=== PATIENT | female | born 1945 | race Caucasian/White ===

== ENCOUNTER → 2016-10-14 | Outpatient (CLI) | payer MEDICARE, OTHER ==
--- NOTE | 2016-10-15 08:13 | BD ---
EXAMINATION TYPE: MG DEXA axial skeleton. DATE OF EXAM: 10/14/2016 1:15 PM COMPARISON: 12.13.2001 DEXA bone scan report. CLINICAL HISTORY: z70.0 post menopausal without hrt Height: 62.5 Weight: 140 FRAX RISK QUESTIONS: Alcohol (3 or more units per day): NO Family History (Parent hip fracture): YES Glucocorticoids (More than 3mos): YES (Ex: prednisone, prednisolone, methylprednisolone, dexamethasone, and hydrocortisone). History of Fracture in Adulthood: NO Secondary Osteoporosis: NO 1. Type 1 Diabetes: YES 2. Hyperthyroidism: NO 3. Menopause before 45: NO 4. Malnutrition: NO 5. Chronic liver disease: NO Rheumatoid Arthritis: NO Current Tobacco Use: NO RISK FACTORS HISTORY OF: Family History of Osteoporosis: YES, HER SISTER, WITH BROKEN HIPS AND BACK Drink Alcohol: RARE Active: LOW TO MODERATE ACTIVITY Diet low in dairy products/other sources of calcium: YES, LACTOSE INTOLERANT Postmenopausal woman: TOTAL HYST AT AGE 48 Take estrogen and/or progesterone medications: TOOK HRT FOR SEVERAL YRS ...BUT NOT NOW Lost more than 2 inches in height since high school: NOT QUITE Adrenal Insufficiency: NO MEDICATIONS: Prednisone or other steroids: ASTHMA INHALERS, SEASONAL, AND STEROIDAL INJECTIONS, DOSE PACS FOR LUNG S How Long: ON AND OFF FOR YRS Thyroid Medications: YES Which medication: SYNTHROID How Lon+ YRS Additional Medications: VIT D3, BP MEDS, LAMOTRIGINE,CLONAZEPAM,MIRTAZAPINE, DIABETIC MEDS, STATIN FO R CHOLESTEROL, Additional History: ASTHMA, SEASONAL ALLERGIES, ARTHRITIS, DIABETES, DEPRESSION/ANXIETY, HYPERTENSION EXAM MEASUREMENTS: Bone mineral densitometry was performed using the [employer] System. Bone mineral density as measured about the Lumbar spine is: ----- L1-L4(G/cm2): 1.023 T Score Values are as follows: ----- L1: -1.4 ----- L2: -2.1 ----- L3: -0.7 ----- L4: -1.3 ----- L1-L4: -1.3 Bone mineral density has: Decreased -6.6% since study of: 12.13.2001 Bone mineral density about the R hip (g/cm2): 0.872 Bone mineral density about the L hip (g/cm2): 0.913 T Score values are as follows: -----R Neck: -1.2 -----L Neck: -0.9 -----R Intertrochanter: -1.8 -----L Intertrochanter: -0.8 Bone mineral density has: Decreased -11.8% since study of: 12.13.2001 FRAX %'S: FOR MAJOR OSTEOPOROTIC FX: 15.3%.....FOR HIP FX: 4.6% PROBABILITY OF FX IN 10 Y RS TIME IMPRESSION: Osteopenia (T Score between -2.5 and -1 as noted by T score values in the low back and right hip is p resent. There is slightly increased risk of fracture and the patient may be considered for treatment. Re-Screen 1-2 years. NOTE: T-SCORE=SD OF THE YOUNG ADULT MEAN.
== END | disposition home or self-care (01) ==
LOC: RADBDWWP 12:35
PROVIDERS: ATTEND Family Medicine
DX: M85.80 Other specified disorders of bone density and structure, unspecified site (principal); Z78.0 Asymptomatic menopausal state
CPT/HCPCS: 77080

== ENCOUNTER → 2016-10-28 | Outpatient (CLI) | payer MEDICARE, OTHER ==
[2016-10-28 10:07] LABS: CH 29.2; CHCM 33.9; HCT 41.9 % (34.0-46.0); HDW 2.52; HGB 13.8 gm/dL (11.4-16.0); MCH 28.4 pg (25.0-35.0); MCHC 32.9 g/dL (31.0-37.0); MCV 86.4 fL (80.0-100.0); Mean Platelet Volume 7.2; RBC 4.84 m/uL (3.80-5.40); WBC 6.8 k/uL (3.8-10.6)
[2016-10-28 10:36] LABS: ALT 34 U/L (9-52); AST 24 U/L (14-36); Alkaline Phosphatase 77 U/L (38-126); Anion Gap 13 mmol/L; Blood Urea Nitrogen 12 mg/dL (7-17); Calcium 8.6 mg/dL (8.4-10.2); Carbon Dioxide 25 mmol/L (22-30); Chloride 100 mmol/L (98-107); Cholesterol 162 mg/dL (<200); Glucose 183 mg/dL (74-99); HDL Cholesterol 44 mg/dL (40-60); Non-African American GFR(MDRD) >60 (>60 ml/min/1.73 sqM); Potassium 4.1 mmol/L (3.5-5.1); Sodium 138 mmol/L (137-145); Total Bilirubin 0.6 mg/dL (0.2-1.3); Total Protein 7.5 g/dL (6.3-8.2); Triglycerides 206 mg/dL (<150)
[2016-10-28 11:42] LABS: Hemoglobin A1C 7.5 % (4.2-6.1)
== END | disposition home or self-care (01) ==
LOC: LABWHC1 09:34
PROVIDERS: ATTEND Family Medicine
DX: Z00.00 Encounter for general adult medical examination without abnormal findings (principal); E03.9 Hypothyroidism, unspecified; E55.9 Vitamin D deficiency, unspecified; E11.9 Type 2 diabetes mellitus without complications; E78.5 Hyperlipidemia, unspecified
CPT/HCPCS: 36415; 80053; 80061; 82043; 82272; 82306; 83036; 84439; 84443; 85027

== ENCOUNTER 2017-01-31 20:23 | Emergency (ER) | payer MEDICARE, OTHER ==
[2017-01-31 20:30] VITALS: BP 151/69; PULSE 72; RESP 20; TEMP 98.3
[2017-01-31] MEDS ORDERED: DIPH,PERTUS(ACELL)TETVAC-LF 0.5 ML VIAL IM ONE (20:43)
--- NOTE | 2017-01-31 20:51 | ED ---
Wound/Laceration HPI - General Chief Complaint: Wound/Laceration Stated Complaint: Left index finger Lac Time Seen by Provider: 01/31/17 20:31 Source: patient, RN notes reviewed Mode of arrival: ambulatory Limitations: no limitations - History of Present Illness Initial Comments: Patient is 71-year-old female presents to the emergency for evaluation of left pointer finger laceration. Patient states she was cutting liver for her son's dog with a serrated knife and accidentally sliced the top of her left pointer finger. Patient states it began to bleed and thought she should be evaluated. Patient denies taking blood thinners. Patient states she is not up-to-date on her tetanus vaccine. Patient states that she is having 1 out of 10 pain. Patient denies any other injuries during incident. - Related Data Home Medications Medication Instructions Recorded Confirmed Acyclovir [Zovirax] 5 gm TOPICAL DAILY PRN 03/04/15 06/23/15 Ascorbic Acid [Vitamin C] 1 tab PO DAILY 03/04/15 06/23/15 Aspirin [Aspirin] 1 tab PO DAILY 03/04/15 06/23/15 Atorvastatin [Lipitor] 20 mg PO DIRECTED 03/04/15 06/23/15 Cholecalciferol [Vitamin D3] 2,000 mg PO DAILY 03/04/15 06/23/15 Exenatide [Byetta] 10 mcg INJ BID 03/04/15 06/23/15 Fexofenadine HCl [Emily Allergy] 1 tab PO DAILY PRN 03/04/15 06/23/15 Levothyroxine Sodium [Synthroid] 100 mcg PO DAILY 03/04/15 06/23/15 Mirtazapine [Remeron] 45 mg PO DAILY 03/04/15 06/23/15 Multivitamin [Men's Multi-Vitamin] 1 tab PO DAILY 03/04/15 06/23/15 Omeprazole [PriLOSEC] 40 mg PO DAILY 03/04/15 06/23/15 clonazePAM [KlonoPIN] 1 mg PO HS 03/04/15 06/23/15 lamoTRIgine [LaMICtal] 25 mg PO HS 03/04/15 06/23/15 metFORMIN HCL [Glucophage] 1,000 mg PO BID 03/04/15 06/23/15 Cycloset 0.8 mg PO DAILY 06/23/15 06/23/15 Losartan-Hctz 50-12.5 mg [Hyzaar 1 tab PO DAILY 06/23/15 06/23/15 50-12.5] Timolol [Betimol 0.5% Ophth Soln] 1 drop BOTH EYES DAILY 06/23/15 06/23/15 Travoprost [Travatan Z 0.004%] 1 drop BOTH EYES DAILY 06/23/15 06/23/15 Allergies Allergy/AdvReac Type Severity Reaction Status Date / Time diphenhydramine HCl Allergy Rash/Hives Verified 01/31/17 20:29 [From Benadryl] insulin detemir Allergy Rash/Hives Verified 01/31/17 20:29 [From Levemir] Iodinated Contrast Media - Allergy Rash/Hives Verified 01/31/17 20:29 Oral and neomycin Allergy Rash/Hives Verified 01/31/17 20:29 nickel Allergy Rash/Hives Verified 01/31/17 20:29 Penicillins Allergy Rash/Hives Verified 01/31/17 20:29 Review of Systems ROS Statement: Those systems with pertinent positive or pertinent negative responses have been documented in the HPI. ROS Other: All systems not noted in ROS Statement are negative. Past Medical History Past Medical History: Diabetes Mellitus, Hyperlipidemia, Hypertension, Thyroid Disorder Additional Past Medical History / Comment(s): jessica rivera virus, History of Any Multi-Drug Resistant Organisms: None Reported Past Surgical History: Appendectomy, Cholecystectomy, Hysterectomy, Tonsillectomy Additional Past Surgical History / Comment(s): THROIDECTOMY, ARTHROSCOPY LEFT KNEE, CATaRACT Past Psychological History: Anxiety, Depression Smoking Status: Never smoker Past Alcohol Use History: None Reported Past Drug Use History: None Reported General Exam - General Exam Comments Initial Comments: Sitting in exam room, no acute distress. Limitations: no limitations General appearance: alert, in no apparent distress Head exam: Present: atraumatic, normal inspection Eye exam: Present: normal appearance ENT exam: Present: normal exam Neck exam: Present: normal inspection Respiratory exam: Absent: respiratory distress Extremities exam: Present: normal inspection Left Hand Wrist exam: Present: laceration (0.5 cm flap laceration/avulsion on the distal phalanx of the pointer finger.) Vascular: Present: normal capillary refill (Capillary refill less than 2 seconds ), radial pulse (2+), ulnar pulse (2+) Back exam: Present: normal inspection Neurological exam: Present: alert, oriented X3, CN II-XII intact, normal gait Psychiatric exam: Present: normal affect, normal mood Skin exam: Present: warm, dry. Absent: rash Course Vital Signs 01/31/17 20:27 Temperature 98.3 F Pulse Rate 72 Respiratory 20 Rate Blood Pressure 151/69 O2 Sat by Pulse 98 Oximetry Procedures - Laceration Laceration #1 Consent Obtained: verbal consent Indication: laceration Site: other (left second finger ) Size (cm): 1 Description: flap Depth: simple, single layer Type of Sutures: other (dermabond) Size of Sutures: other Patient Tolerated Procedure: well, no complications Medical Decision Making - Medical Decision Making Patient is a 71-year-old female presents to the emergency room for evaluation of left pointer finger laceration. Patient up-to-date on her tetanus vaccine. Laceration repaired with Dermabond. Return parameters discussed. Disposition Clinical Impression: Finger laceration Disposition: HOME SELF-CARE Condition: Good Instructions: Finger Laceration (ED), Skin Adhesive Care (ED) Additional Instructions: Tylenol or Motrin as needed for discomfort. Dermabond will fall off on its own in 5-10 days. Do not soak hands in water. Please follow up with primary care provider in 1-2 days. If any new symptom arises or symptoms worsen, return to ER as soon as possible. Referrals: Terri Lauren MD [Primary Care Provider] - 1-2 days Time of Disposition: 21:13
[2017-01-31] MEDS ORDERED: TOPICAL SKIN ADHESIVE 1 EACH AMP TOPICAL ONE (21:00)
[2017-01-31] MEDS ORDERED: LIDOCAINE/EPINEPHR/TETRACAINE 5 ML BOTTLE TOPICAL ONE (21:00)
== END 2017-01-31 21:20 | disposition home or self-care (01) ==
LOC: EC 20:23
DX: S61.211A Laceration without foreign body of left index finger without damage to nail, initial encounter (principal); E11.9 Type 2 diabetes mellitus without complications; E78.5 Hyperlipidemia, unspecified; I10 Essential (primary) hypertension; E07.9 Disorder of thyroid, unspecified; F32.9 Major depressive disorder, single episode, unspecified; F41.9 Anxiety disorder, unspecified; Z23 Encounter for immunization; Z79.899 Other long term (current) drug therapy; Z79.84 Long term (current) use of oral hypoglycemic drugs; Z88.8 Allergy status to other drugs, medicaments and biological substances; Z91.041 Radiographic dye allergy status; Z88.0 Allergy status to penicillin; Z88.1 Allergy status to other antibiotic agents; W26.0XXA Contact with knife, initial encounter; Y93.89 Activity, other specified
CPT/HCPCS: 12001; 90471; 90715; 99282

== ENCOUNTER → 2017-07-14 | Outpatient (CLI) | payer MEDICARE, OTHER ==
--- NOTE | 2017-07-14 09:35 | US ---
EXAMINATION TYPE: US carotid duplex BILAT DATE OF EXAM: 07/14/2017 COMPARISON: NONE CLINICAL HISTORY: R42 Dizziness. Tired. No HTN. EXAM MEASUREMENTS: RIGHT: Peak Systolic Velocity (PSV) cm/sec ----- Right CCA: 119.0 ----- Right ICA: 129.2 ----- Right ECA: 88.0 ICA/CCA ratio: 1.1 RIGHT: End Diastole cm/sec ----- Right CCA: 36.5 ----- Right ICA: 41.9 ----- Right ECA: 11.5 LEFT: Peak Systolic Velocity (PSV) cm/sec ----- Left CCA: 99.2 ----- Left ICA: 102.0 ----- Left ECA: 87.7 ICA/CCA ratio: 1.0 LEFT: End Diastole cm/sec ----- Left CCA: 24.1 ----- Left ICA: 32.6 ----- Left ECA: 7.3 VERTEBRALS (direction of flow): Right Vertebral: Antegrade Left Vertebral: Antegrade Rhythm: Normal No significant stenosis or wall thickening. Plaque seen in bilateral bulbs. IMPRESSION: 1. Elevated peak systolic velocity of the right internal carotid artery corresponding to stenosis of approximately 50%. 2. Minimal crowder scale plaquing within the carotid bulbs. 3. No evidence of hemodynamically significant stenosis within the left carotid system.
== END | disposition home or self-care (01) ==
LOC: RADUSWWP 06:59
PROVIDERS: ATTEND Family Medicine
DX: I65.21 Occlusion and stenosis of right carotid artery (principal)
CPT/HCPCS: 93880

== ENCOUNTER → 2017-11-16 | Outpatient (CLI) | payer MEDICARE, OTHER ==
[2017-11-16 15:20] LABS: Potassium 4.5 mmol/L (3.5-5.1)
[2017-11-16 22:16] LABS: Hemoglobin A1C 7.4 % (4.0-6.0)
== END | disposition home or self-care (01) ==
LOC: LABWHC1 14:17
PROVIDERS: ATTEND Family Medicine
DX: E11.9 Type 2 diabetes mellitus without complications (principal)
CPT/HCPCS: 36415; 80048; 82043; 82570; 83036

== ENCOUNTER → 2018-03-11 | Outpatient (CLI) | payer MEDICARE, OTHER ==
[2018-03-11 09:47] LABS: Basophils % (A) 0 %; Eosinophils # (A) 0.2 k/uL (0-0.7); Eosinophils % (A) 4 %; HCT 38.4 % (34.0-46.0); Lymphocytes % (A) 30 %; MCH 29.4 pg (25.0-35.0); MCHC 33.8 g/dL (31.0-37.0); MCV 87.1 fL (80.0-100.0); Mean Platelet Volume 7.2; Monocytes # (A) 0.5 k/uL (0-1.0); Monocytes % (A) 8 %; Neutrophils # (A) 3.7 k/uL (1.3-7.7); Neutrophils % (A) 56 %; Platelet Count 252 k/uL (150-450); RBC 4.41 m/uL (3.80-5.40); RDW 13.1 % (11.5-15.5); WBC 6.7 k/uL (3.8-10.6)
[2018-03-11 10:05] LABS: ALT 29 U/L (9-52); AST 21 U/L (14-36); Albumin 3.9 g/dL (3.5-5.0); Alkaline Phosphatase 74 U/L (38-126); Anion Gap 10 mmol/L; Blood Urea Nitrogen 13 mg/dL (7-17); Calcium 8.4 mg/dL (8.4-10.2); Carbon Dioxide 30 mmol/L (22-30); Chloride 98 mmol/L (98-107); Cholesterol 143 mg/dL (<200); Glucose 148 mg/dL (74-99); HDL Cholesterol 44 mg/dL (40-60); LDL Cholesterol,Calculated 67 mg/dL (0-99); Potassium 4.5 mmol/L (3.5-5.1); Sodium 138 mmol/L (137-145); Total Bilirubin 0.3 mg/dL (0.2-1.3); Total Protein 6.6 g/dL (6.3-8.2); Triglycerides 159 mg/dL (<150)
[2018-03-11 10:16] LABS: T4, Free (Free Thyroxine) 1.56 ng/dL (0.78-2.19)
[2018-03-11 18:34] LABS: Hemoglobin A1C 7.5 % (4.0-6.0)
== END | disposition home or self-care (01) ==
LOC: LABWHC1 08:56
PROVIDERS: ATTEND Family Medicine
DX: E78.5 Hyperlipidemia, unspecified (principal); E11.9 Type 2 diabetes mellitus without complications; I10 Essential (primary) hypertension; E03.9 Hypothyroidism, unspecified; E55.9 Vitamin D deficiency, unspecified
CPT/HCPCS: 36415; 80053; 80061; 82306; 83036; 84439; 84443; 85025

== ENCOUNTER → 2018-05-26 | Outpatient (CLI) | payer MEDICARE, OTHER ==
[2018-05-26 19:07] LABS: Hemoglobin A1C 7.8 % (4.0-6.0)
== END | disposition home or self-care (01) ==
LOC: LABWHC1 10:43
PROVIDERS: ATTEND Internal Medicine
DX: E11.65 Type 2 diabetes mellitus with hyperglycemia (principal)
CPT/HCPCS: 36415; 82043; 82570; 83036

== ENCOUNTER → 2018-09-08 | Outpatient (CLI) | payer MEDICARE, OTHER ==
[2018-09-08 09:28] LABS: Basophils # (A) 0.1 k/uL (0-0.2); Basophils % (A) 1 %; Eosinophils # (A) 0.2 k/uL (0-0.7); Eosinophils % (A) 3 %; HCT 42.7 % (34.0-46.0); HGB 13.4 gm/dL (11.4-16.0); Lymphocytes # (A) 2.1 k/uL (1.0-4.8); Lymphocytes % (A) 29 %; MCH 27.7 pg (25.0-35.0); MCHC 31.5 g/dL (31.0-37.0); Mean Platelet Volume 6.9; Monocytes # (A) 0.5 k/uL (0-1.0); Monocytes % (A) 7 %; Neutrophils # (A) 4.1 k/uL (1.3-7.7); Neutrophils % (A) 57 %; Platelet Count 242 k/uL (150-450); RBC 4.85 m/uL (3.80-5.40); RDW 13.7 % (11.5-15.5); WBC 7.2 k/uL (3.8-10.6)
[2018-09-08 17:50] LABS: T4, Free (Free Thyroxine) 1.5 ng/dL (0.80-1.80)
[2018-09-08 18:30] LABS: Albumin 4.2 g/dL (3.80-4.90); Albumin/Globulin Ratio 2.1 (1.20-2.10); Anion Gap 11.4 mmol/L (4.00-12.00); Calcium 7.8 mg/dL (8.7-10.3); Carbon Dioxide 29.6 mmol/L (21.6-31.8); LDL Cholesterol,Calculated 55.4 mg/dL (0.0-131.0); Potassium 3.9 mmol/L (3.5-5.5); Total Bilirubin 0.4 mg/dL (0.2-1.2); Total Protein 6.2 g/dL (6.2-8.2); VLDL Calculation 28.6 mg/dL (5.00-40.00)
== END | disposition home or self-care (01) ==
LOC: LABWHC1 08:30
PROVIDERS: ATTEND Family Medicine
DX: E78.5 Hyperlipidemia, unspecified (principal); I10 Essential (primary) hypertension; E55.9 Vitamin D deficiency, unspecified; E11.65 Type 2 diabetes mellitus with hyperglycemia; E03.9 Hypothyroidism, unspecified
CPT/HCPCS: 36415; 80053; 80061; 82043; 82306; 82570; 83036; 84439; 84443; 85025

== ENCOUNTER 2018-10-16 17:40 | Emergency (ER) | payer MEDICARE, OTHER ==
[2018-10-16 17:47] VITALS: TEMP 97.7
[2018-10-16] MEDS ORDERED: DIAZEPAM 5 MG/ML 2 ML INJ IVP STA (18:10)
[2018-10-16] MEDS ORDERED: MECLIZINE 25 MG TAB PO STA (18:10)
[2018-10-16] MEDS ORDERED: ONDANSETRON 4 MG/2 ML VIAL IVP STA (18:10)
--- NOTE | 2018-10-16 18:38 | ED ---
General Adult HPI - General Chief complaint: Chest Pain Stated complaint: CHEST PAIN, NAUSEA, NEAR SYNCOPE, WEAKNESS Time Seen by Provider: 10/16/18 17:45 Source: patient, RN notes reviewed Mode of arrival: wheelchair Limitations: no limitations - History of Present Illness Initial comments: This is a 72-year-old female presents emergency department stating she thought she was given a passout but when she describes her symptoms it sounds as though she's going to fall over because she is so dizzy. Patient states closer eyes doesn't help her symptoms. Patient states moving her head makes symptoms worse. Patient states she was very nauseated with the symptoms 2. Patient also states she has some left-sided chest pain that lasted couple seconds and it was just a pressure on the chest for 2-3 seconds. Patient denies any shortness of breath or difficulty breathing. Patient denies any headache patient denies any numbness or focal weakness. Patient denies any abdominal pain patient denies any diarrhea. Patient states she hasn't had a recent fever chills or cough. Patient states she does have a history of vertigo but this doesn't quite feel the same it's much worse today. Patient denies any swelling to legs or calf tenderness. Her symptoms started at 2:00 this afternoon. - Related Data Home Medications Medication Instructions Recorded Confirmed Aspirin 81 mg PO DAILY 03/04/15 10/16/18 Atorvastatin [Lipitor] 20 mg PO MOTH 03/04/15 10/16/18 Cholecalciferol [Vitamin D3] 2,000 mg PO BID 03/04/15 10/16/18 Fexofenadine HCl [Emily Allergy] 180 mg PO DAILY 03/04/15 10/16/18 Mirtazapine [Remeron] 60 mg PO DAILY 03/04/15 10/16/18 clonazePAM [KlonoPIN] 2 mg PO HS 03/04/15 10/16/18 lamoTRIgine [LaMICtal] 50 mg PO HS 03/04/15 10/16/18 Losartan-Hctz 50-12.5 mg [Hyzaar 1 tab PO AC-BRKFST 06/23/15 10/16/18 50-12.5] Timolol [Betimol 0.5% Ophth Soln] 1 drop BOTH EYES DAILY 06/23/15 10/16/18 Travoprost [Travatan Z 0.004%] 1 drop BOTH EYES DAILY 06/23/15 10/16/18 Albuterol Inhaler [Ventolin Hfa 1 - 2 puff INHALATION RT-Q6H PRN 10/16/18 Inhaler] Canagliflozin [Invokana] 300 mg PO AC-BRKFST 10/16/18 10/16/18 Exenatide [Byetta] 10 mcg SQ BID 10/16/18 10/16/18 Fluticasone Nasal Childs [Flonase 2 spray EA NOSTRIL DAILY PRN 10/16/18 10/16/18 Nasal Childs] Glucosam/David-Msm1/C/Joés Luis/Bosw 1 tab PO BID 10/16/18 10/16/18 [Glucosamine-Chondroitin Tablet] Levothyroxine Sodium 88 mcg PO AC-BRKFST 10/16/18 10/16/18 Montelukast [Singulair] 10 mg PO DAILY 10/16/18 10/16/18 Ranitidine HCl [Zantac] 75 mg PO BID PRN 10/16/18 10/16/18 Repaglinide [Prandin] 0.5 mg PO AC-LUNCH 10/16/18 10/16/18 metFORMIN HCL 1,000 mg PO BID 10/16/18 10/16/18 Previous Rx's Medication Instructions Recorded Meclizine [Antivert] 25 mg PO TID #20 tab 10/16/18 Allergies Allergy/AdvReac Type Severity Reaction Status Date / Time diphenhydramine HCl Allergy Rash/Hives Verified 10/16/18 18:20 [From Benadryl] insulin detemir Allergy Rash/Hives Verified 10/16/18 18:20 [From Levemir] Iodinated Contrast- Oral and Allergy Rash/Hives Verified 10/16/18 18:20 IV Dye neomycin Allergy Rash/Hives Verified 10/16/18 18:20 nickel Allergy Rash/Hives Verified 10/16/18 18:20 Penicillins Allergy Rash/Hives Verified 10/16/18 18:20 Review of Systems ROS Statement: Those systems with pertinent positive or pertinent negative responses have been documented in the HPI. ROS Other: All systems not noted in ROS Statement are negative. Past Medical History Past Medical History: Diabetes Mellitus, Hyperlipidemia, Hypertension, Thyroid Disorder Additional Past Medical History / Comment(s): jessica rivera virus, History of Any Multi-Drug Resistant Organisms: None Reported Past Surgical History: Appendectomy, Cholecystectomy, Hysterectomy, Tonsillectomy Additional Past Surgical History / Comment(s): THROIDECTOMY, ARTHROSCOPY LEFT KNEE, CATaRACT Past Psychological History: Anxiety, Depression Smoking Status: Never smoker Past Alcohol Use History: None Reported Past Drug Use History: None Reported General Exam - General Exam Comments Initial Comments: GENERAL: Patient is well-developed and well-nourished. Patient is nontoxic and well- hydrated and is in mild distress. ENT: Neck is soft and supple. No significant lymphadenopathy is noted. Oropharynx is clear. Moist mucous membranes. Neck has full range of motion without eliciting any pain. EYES: The sclera were anicteric and conjunctiva were pink and moist. Extraocular movements were intact and pupils were equal round and reactive to light. Eyelids were unremarkable. PULMONARY: Unlabored respirations. Good breath sounds bilaterally. No audible rales rhonchi or wheezing was noted. CARDIOVASCULAR: There is a regular rate and rhythm without any murmurs gallops or rubs. ABDOMEN: Soft and nontender with normal bowel sounds. No palpable organomegaly was noted. There is no palpable pulsatile mass. SKIN: Skin is clear with no lesions or rashes and otherwise unremarkable. NEUROLOGIC: Patient is alert and oriented x3. Cranial nerves II through XII are grossly intact. Motor and sensory are also intact. Normal speech, volume and content. Symmetrical smile. MUSCULOSKELETAL: Normal extremities with adequate strength and full range of motion. No lower extremity swelling or edema. No calf tenderness. LYMPHATICS: No significant lymphadenopathy is noted PSYCHIATRIC: Normal psychiatric evaluation. Limitations: no limitations Course Vital Signs 10/16/18 10/16/18 10/16/18 17:44 18:50 19:10 Temperature 97.7 F Pulse Rate 81 73 Pulse Rate [ 72 Traffic Incident Management Manager ] Respiratory 18 18 Rate Blood Pressure 170/81 136/75 O2 Sat by Pulse 100 97 Oximetry Medical Decision Making - Medical Decision Making EKG shows normal sinus rhythm at 73 bpm NM interval is 136 dresses 82 QT intervals 410 QTC is 451 per patient's EKG shows no ST segment elevation or depression or T wave abnormalities are noted. Patient's CT of the brain showed no acute abnormality. Patient's chest x-ray showed no acute normalities. Patient had Ativan and Valium in the emergency department and then was able to intubate without problem. Patient states she still felt a little bit off when she moved her head quickly but almost completely resolved. Patient felt comfortable going home. Patient understood she did come back for any new or worsening symptoms - Lab Data Result diagrams: 10/16/18 18:17 10/16/18 18:17 Lab Results 10/16/18 10/16/18 10/16/18 Range/Units 18:17 18:17 18:17 WBC 11.0 H (3.8-10.6) k/uL RBC 5.05 (3.80-5.40) m/uL Hgb 14.5 (11.4-16.0) gm/dL Hct 43.7 (34.0-46.0) % MCV 86.7 (80.0-100.0) fL MCH 28.7 (25.0-35.0) pg MCHC 33.1 (31.0-37.0) g/dL RDW 13.6 (11.5-15.5) % Plt Count 294 (150-450) k/uL Neutrophils % 60 % Lymphocytes % 30 % Monocytes % 6 % Eosinophils % 2 % Basophils % 1 % Neutrophils # 6.6 (1.3-7.7) k/uL Lymphocytes # 3.3 (1.0-4.8) k/uL Monocytes # 0.7 (0-1.0) k/uL Eosinophils # 0.2 (0-0.7) k/uL Basophils # 0.1 (0-0.2) k/uL PT (9.0-12.0) sec INR (<1.2) APTT (22.0-30.0) sec Sodium 137 (137-145) mmol/L Potassium 4.1 (3.5-5.1) mmol/L Chloride 99 (98-107) mmol/L Carbon Dioxide 22 (22-30) mmol/L Anion Gap 16 mmol/L BUN 23 H (7-17) mg/dL Creatinine 0.83 (0.52-1.04) mg/dL Est GFR (CKD-EPI)AfAm 81 (>60 ml/min/1.73 sqM) Est GFR (CKD-EPI)NonAf 70 (>60 ml/min/1.73 sqM) Glucose 223 H (74-99) mg/dL Calcium 8.4 (8.4-10.2) mg/dL Magnesium 1.8 (1.6-2.3) mg/dL Total Bilirubin 0.5 (0.2-1.3) mg/dL AST 21 (14-36) U/L ALT 28 (9-52) U/L Alkaline Phosphatase 90 (38-126) U/L Total Creatine Kinase 76 (30-135) U/L CK-MB (CK-2) 0.7 (0.0-2.4) ng/mL CK-MB (CK-2) Rel Index 0.9 Troponin I <0.012 (0.000-0.034) ng/mL Total Protein 7.4 (6.3-8.2) g/dL Albumin 4.4 (3.5-5.0) g/dL 10/16/18 Range/Units 18:17 WBC (3.8-10.6) k/uL RBC (3.80-5.40) m/uL Hgb (11.4-16.0) gm/dL Hct (34.0-46.0) % MCV (80.0-100.0) fL MCH (25.0-35.0) pg MCHC (31.0-37.0) g/dL RDW (11.5-15.5) % Plt Count (150-450) k/uL Neutrophils % % Lymphocytes % % Monocytes % % Eosinophils % % Basophils % % Neutrophils # (1.3-7.7) k/uL Lymphocytes # (1.0-4.8) k/uL Monocytes # (0-1.0) k/uL Eosinophils # (0-0.7) k/uL Basophils # (0-0.2) k/uL PT 9.9 (9.0-12.0) sec INR 0.9 (<1.2) APTT 25.7 (22.0-30.0) sec Sodium (137-145) mmol/L Potassium (3.5-5.1) mmol/L Chloride (98-107) mmol/L Carbon Dioxide (22-30) mmol/L Anion Gap mmol/L BUN (7-17) mg/dL Creatinine (0.52-1.04) mg/dL Est GFR (CKD-EPI)AfAm (>60 ml/min/1.73 sqM) Est GFR (CKD-EPI)NonAf (>60 ml/min/1.73 sqM) Glucose (74-99) mg/dL Calcium (8.4-10.2) mg/dL Magnesium (1.6-2.3) mg/dL Total Bilirubin (0.2-1.3) mg/dL AST (14-36) U/L ALT (9-52) U/L Alkaline Phosphatase (38-126) U/L Total Creatine Kinase (30-135) U/L CK-MB (CK-2) (0.0-2.4) ng/mL CK-MB (CK-2) Rel Index Troponin I (0.000-0.034) ng/mL Total Protein (6.3-8.2) g/dL Albumin (3.5-5.0) g/dL Disposition Clinical Impression: Vertigo Disposition: HOME SELF-CARE Instructions (If sedation given, give patient instructions): Vertigo (ED) Prescriptions: Meclizine [Antivert] 25 mg PO TID #20 tab Is patient prescribed a controlled substance at d/c from ED?: No Referrals: Terri Lauren MD [Primary Care Provider] - 1-2 days Time of Disposition: 21:04
[2018-10-16 19:01] LABS: Basophils # (A) 0.1 k/uL (0-0.2); Basophils % (A) 1 %; Eosinophils # (A) 0.2 k/uL (0-0.7); Eosinophils % (A) 2 %; HCT 43.7 % (34.0-46.0); HGB 14.5 gm/dL (11.4-16.0); INR 0.9 (<1.2); Lymphocytes # (A) 3.3 k/uL (1.0-4.8); Lymphocytes % (A) 30 %; MCH 28.7 pg (25.0-35.0); MCHC 33.1 g/dL (31.0-37.0); MCV 86.7 fL (80.0-100.0); Mean Platelet Volume 7.1; Monocytes # (A) 0.7 k/uL (0-1.0); Monocytes % (A) 6 %; Neutrophils # (A) 6.6 k/uL (1.3-7.7); Neutrophils % (A) 60 %; Platelet Count 294 k/uL (150-450); RBC 5.05 m/uL (3.80-5.40); RDW 13.6 % (11.5-15.5)
[2018-10-16 19:02] LABS: Partial Thromboplastin Time 25.7 sec (22.0-30.0); Prothrombin Time 9.9 sec (9.0-12.0)
[2018-10-16 19:04] LABS: Albumin 4.4 g/dL (3.5-5.0); Calcium 8.4 mg/dL (8.4-10.2); Magnesium 1.8 mg/dL (1.6-2.3); Potassium 4.1 mmol/L (3.5-5.1); Total Bilirubin 0.5 mg/dL (0.2-1.3); Total Protein 7.4 g/dL (6.3-8.2)
[2018-10-16 19:14] LABS: Creatine Kinase 76 U/L (30-135)
[2018-10-16 19:28] LABS: Creatine Kinase MB 0.7 ng/mL (0.0-2.4); Troponin I <0.012 ng/mL (0.000-0.034)
--- NOTE | 2018-10-16 19:41 | CT ---
EXAMINATION TYPE: CT brain wo con DATE OF EXAM: 10/16/2018 COMPARISON: None HISTORY: Dizziness. CT DLP: 1064.4 mGycm Automated exposure control for dose reduction was used. FINDINGS: Ventricles have normal size. There is no mass effect nor midline shift. There is no sign of intracran ial hemorrhage. Calvarium is intact. IMPRESSION: NEGATIVE CT SCAN OF THE BRAIN.
--- NOTE | 2018-10-16 19:44 | XR ---
EXAMINATION TYPE: XR chest 2V DATE OF EXAM: 10/16/2018 COMPARISON: 02/17/2012 HISTORY: Chest pain TECHNIQUE: Frontal and lateral views of the chest are obtained. FINDINGS: Heart and mediastinum are normal. Lungs are clear of consolidation. There are chest leads. Costophrenic angles are clear. Bony thorax is intact. IMPRESSION: No active cardiopulmonary disease. No change.
[2018-10-16] MEDS ORDERED: ONDANSETRON 4 MG ODT STARTER PACK 2 TAB BTL PO STA (21:30)
[2018-10-16 21:45] VITALS: BP 135/80; PULSE 78; RESP 20
--- NOTE | 2018-10-18 05:51 | CDI ---
Documentation Clarification OP Dear Dr. Brayden Sharp Please provide intubation complete document. Thank you, Elba Mena Hoop Flaring Machine Operator Helper If you have any questions, please contact [facility] Willow Analyst at [facility]
== END 2018-10-16 21:44 | disposition home or self-care (01) ==
LOC: EC 17:40
DX: R42 Dizziness and giddiness (principal); R07.9 Chest pain, unspecified; R11.0 Nausea; R55 Syncope and collapse; R53.1 Weakness; E11.9 Type 2 diabetes mellitus without complications; E78.5 Hyperlipidemia, unspecified; I10 Essential (primary) hypertension; E07.9 Disorder of thyroid, unspecified; F41.9 Anxiety disorder, unspecified; F32.9 Major depressive disorder, single episode, unspecified; Z79.82 Long term (current) use of aspirin; Z79.890 Hormone replacement therapy; Z79.84 Long term (current) use of oral hypoglycemic drugs; Z79.899 Other long term (current) drug therapy; Z88.8 Allergy status to other drugs, medicaments and biological substances; Z91.041 Radiographic dye allergy status; Z88.1 Allergy status to other antibiotic agents; Z91.048 Other nonmedicinal substance allergy status; Z88.0 Allergy status to penicillin
CPT/HCPCS: 99285; 96374; 96375; 36415; 93005; 80053; 82550; 82553; 83735; 84484; 85025; 85610; 85730; 71046; 70450; J3360; J2405; S0119

== ENCOUNTER → 2018-11-21 | Outpatient (CLI) | payer MEDICARE, OTHER ==
[2018-11-21 16:29] LABS: Albumin 4.5 g/dL (3.80-4.90); Albumin/Globulin Ratio 1.96 (1.60-3.17); Anion Gap 10.8 mmol/L (4.00-12.00); Calcium 9.1 mg/dL (8.7-10.3); Carbon Dioxide 29.2 mmol/L (21.6-31.8); Globulin 2.3 g/dL (1.6-3.3); LDL Cholesterol,Calculated 73.8 mg/dL (0.0-131.0); Potassium 4.3 mmol/L (3.5-5.5); Total Bilirubin 0.6 mg/dL (0.3-1.2); Total Protein 6.8 g/dL (6.2-8.2); VLDL Calculation 37.2 mg/dL (5.00-40.00)
[2018-11-21 16:36] LABS: T4, Free (Free Thyroxine) 1.5 ng/dL (0.80-1.80)
[2018-11-21 19:23] LABS: Hemoglobin A1C 8.1 % (4.0-6.0)
== END | disposition home or self-care (01) ==
LOC: LABWHC1 08:32
PROVIDERS: ATTEND Internal Medicine
DX: E11.65 Type 2 diabetes mellitus with hyperglycemia (principal); E55.9 Vitamin D deficiency, unspecified
CPT/HCPCS: 36415; 80053; 80061; 82043; 82306; 82570; 83036; 84439; 84443

== ENCOUNTER → 2018-12-07 | Outpatient (CLI) | payer MEDICARE, OTHER ==
--- NOTE | 2018-12-08 11:39 | MM ---
Reason for exam: screening (asymptomatic). Last mammogram was performed 1 year ago. History: Patient is postmenopausal. Family history of breast cancer in daughter at age 44. Took estrogen for 6 years. Took progesterone for 6 years. Physical Findings: A clinical breast exam by your physician is recommended on an annual basis and results should be correlated with mammographic findings. MG 3D Screening Mammo W/Cad Bilateral CC and MLO view(s) were taken. Prior study comparison: December 06, 2017, bilateral MG 3d screening mammo w/cad. June 11, 2016, bilateral MG 3d screening mammo w/cad. The breast tissue is heterogeneously dense. This may lower the sensitivity of mammography. Benign appearing bilateral calcifications. No suspicious abnormality. No significant changes when compared with prior studies. ASSESSMENT: Benign, BI-RAD 2 RECOMMENDATION: Routine screening mammogram of both breasts in 1 year.
== END | disposition home or self-care (01) ==
LOC: RADMAMWWP 09:38
PROVIDERS: ATTEND Family Medicine
DX: Z12.31 Encounter for screening mammogram for malignant neoplasm of breast (principal)
CPT/HCPCS: 77063; 77067

== ENCOUNTER → 2019-03-14 | Outpatient (CLI) | payer MEDICARE, OTHER ==
[2019-03-14 09:13] LABS: Basophils # (A) 0.1 k/uL (0-0.2); Basophils % (A) 1 %; Eosinophils # (A) 0.4 k/uL (0-0.7); Eosinophils % (A) 5 %; HCT 42.4 % (34.0-46.0); HGB 13.9 gm/dL (11.4-16.0); Lymphocytes # (A) 2.3 k/uL (1.0-4.8); Lymphocytes % (A) 28 %; MCHC 32.7 g/dL (31.0-37.0); MCV 85.7 fL (80.0-100.0); Mean Platelet Volume 7.5; Monocytes # (A) 0.5 k/uL (0-1.0); Monocytes % (A) 6 %; Neutrophils # (A) 4.6 k/uL (1.3-7.7); Neutrophils % (A) 58 %; Platelet Count 280 k/uL (150-450); RBC 4.95 m/uL (3.80-5.40); RDW 14.2 % (11.5-15.5)
[2019-03-14 16:30] LABS: African American GFR (CKD) 83.6 (60.0-200.0); Albumin 4.3 g/dL (3.80-4.90); Albumin/Globulin Ratio 1.95 (1.60-3.17); Anion Gap 12.1 mmol/L (4.00-12.00); BUN/Creat Ratio 21.25 Ratio (12.00-20.00); Calcium 8.5 mg/dL (8.7-10.3); Carbon Dioxide 27.9 mmol/L (21.6-31.8); Globulin 2.2 g/dL (1.6-3.3); Potassium 4.3 mmol/L (3.5-5.5); Total Bilirubin 0.4 mg/dL (0.3-1.2); Total Protein 6.5 g/dL (6.2-8.2)
[2019-03-14 16:37] LABS: T4, Free (Free Thyroxine) 1.4 ng/dL (0.80-1.80)
== END | disposition home or self-care (01) ==
LOC: LABWHC1 08:26
PROVIDERS: ATTEND Family Medicine
DX: E78.5 Hyperlipidemia, unspecified (principal); I10 Essential (primary) hypertension; E03.9 Hypothyroidism, unspecified; E55.9 Vitamin D deficiency, unspecified
CPT/HCPCS: 36415; 80053; 80061; 82306; 84439; 84443; 85025

== ENCOUNTER → 2020-05-07 | Outpatient (CLI) | payer MEDICARE, OTHER ==
--- NOTE | 2020-05-07 16:29 | BD ---
EXAMINATION TYPE: Axial Bone Density DATE OF EXAM: 05/07/2020 COMPARISON: NONE CLINICAL HISTORY: Postmenopausal screening Height: 5 FT 2 IN Weight: 139 FRAX RISK QUESTIONS: Alcohol (3 or more units per day): NO Family History (Parent hip fracture): NO Glucocorticoids (More than 3mos): NO (Ex: prednisone, prednisolone, methylprednisolone, dexamethasone, and hydrocortisone). History of Fracture in Adulthood: NO Secondary Osteoporosis: 1. Type 1 Diabetes: NO 2. Hyperthyroidism: NO 3. Menopause before 45: NO 4. Malnutrition: NO 5. Chronic liver disease: NO Rheumatoid Arthritis: NO Current Tobacco Use: NO RISK FACTORS HISTORY OF: Family History of Osteoporosis: YES Active: SOMEWHAT Postmenopausal woman: TOTAL HYST AGE 48 Take estrogen and/or progesterone medications: TOOK HRT FOR SEV YEARS AFTER HYST NO LONGER TAKES MEDICATIONS: Thyroid Medications: YES Which medication: LEVOTHYROXINE How Long: SINCE 1988 THYROID REMOVED 1988 Additional Medications: LEVOTHYROXINE, LAMOTRIGINE, METFORMIN, PRANDIN, FORSEGA, TRULICITY, ATORVASTA TIN, LOSARTIN, CLONAZEPAM, MIRTAZAPINE, LOREN, NASAL SPRAY, VIT C, VIT D3, ASPIRIN, Additional History: EXAM MEASUREMENTS: Bone mineral densitometry was performed using the [employer] System. Bone mineral density as measured about the Lumbar spine is: ----- L1-L4(G/cm2): 1.076 T Score Values are as follows: ----- L2: -1.5 ----- L3: -0.3 ----- L4: -0.7 ----- L1-L4: -0.9 Bone mineral density has: INCREASED 6.0 % since study of: 2017 Bone mineral density about the R hip (g/cm2): 0.903 Bone mineral density about the L hip (g/cm2): 0.860 T Score values are as follows: -----R Neck: -1.0 -----L Neck: -1.3 -----R Total: -1.2 -----L Total: -0.8 Bone mineral density has: DECREASED -1.9 % since study of: 2017 IMPRESSION: Osteopenia (T Score between -2.5 and -1). There is slightly increased risk of fracture and the patient may be considered for treatment. Re-Screen 2-5 years. NOTE: T-SCORE=SD OF THE YOUNG ADULT MEAN.
--- NOTE | 2020-05-08 08:36 | MM ---
Reason for exam: screening (asymptomatic). Last mammogram was performed 1 year and 5 months ago. History: Patient is postmenopausal. Family history of breast cancer in daughter at age 44. Took estrogen for 6 years. Took progesterone for 6 years. Physical Findings: A clinical breast exam by your physician is recommended on an annual basis and results should be correlated with mammographic findings. MG 3D Screening Mammo W/Cad Bilateral CC and MLO view(s) were taken. Prior study comparison: December 07, 2018, bilateral MG 3d screening mammo w/cad. December 06, 2017, bilateral MG 3d screening mammo w/cad. The breast tissue is heterogeneously dense. This may lower the sensitivity of mammography. Focal asymmetry upper central right breast anterior third position. This finding is changed when compared with previous exams. ASSESSMENT: Incomplete: need additional imaging evaluation, BI-RAD 0 RECOMMENDATION: Special view mammogram of the right breast. If lesion persists on supplemental views, image directed ultrasound is recommended. [facility] will attempt to contact patient to return for supplemental views and ultrasound if indicated.
== END | disposition home or self-care (01) ==
LOC: RADMAMWWP 11:17
PROVIDERS: ATTEND Obstetrics & Gynecology
DX: Z12.31 Encounter for screening mammogram for malignant neoplasm of breast (principal); M85.80 Other specified disorders of bone density and structure, unspecified site
CPT/HCPCS: 77063; 77067; 77080

== ENCOUNTER → 2020-05-12 | Outpatient (CLI) | payer MEDICARE, OTHER ==
--- NOTE | 2020-05-12 08:32 | MM ---
Reason for exam: additional evaluation requested from abnormal screening. Last mammogram was performed less than 1 month ago. History: Patient is postmenopausal. Family history of breast cancer in daughter at age 44 and breast cancer in maternal aunt. Took estrogen for 6 years. Took progesterone for 6 years. Physical Findings: Nurse did not find any significant physical abnormalities on exam. MG 3D Work Up W/Cad RT Spot compression CC, spot compression MLO, and ML view(s) were taken of the right breast. Prior study comparison: May 07, 2020, bilateral MG 3d screening mammo w/cad. December 07, 2018, bilateral MG 3d screening mammo w/cad. There are scattered fibroglandular densities. Asymmetric breast tissue, right anterior upper quadrant, stable from 2016. No new lesion on additional views. These results were verbally communicated with the patient and result sheet given to the patient on 05/12/20. ASSESSMENT: Negative, BI-RAD 1 RECOMMENDATION: Return to routine screening mammogram schedule for both breasts.
== END | disposition home or self-care (01) ==
LOC: RADMAMWWP 07:40
PROVIDERS: ATTEND Obstetrics & Gynecology
DX: R92.8 Other abnormal and inconclusive findings on diagnostic imaging of breast (principal)
CPT/HCPCS: 77065; G0279; 77061

== ENCOUNTER → 2020-07-09 | Outpatient (CLI) | payer MEDICARE, OTHER ==
[2020-07-09 18:34] LABS: Chol/HDL Ratio 3.28; LDL Cholesterol,Calculated 64.8 mg/dL (0.0-131.0); VLDL Calculation 24.2 mg/dL (5.00-40.00)
== END | disposition home or self-care (01) ==
LOC: LABWHC1 09:15
PROVIDERS: ATTEND Internal Medicine Interventional Cardiology
DX: E11.9 Type 2 diabetes mellitus without complications (principal); I10 Essential (primary) hypertension
CPT/HCPCS: 36415; 80061; 82550; 84450; 84460

== ENCOUNTER → 2021-06-03 | Outpatient (CLI) | payer MEDICARE, OTHER ==
--- NOTE | 2021-06-03 13:29 | MM ---
Reason for exam: screening (asymptomatic). Last mammogram was performed 1 year and 1 month ago. History: Patient is postmenopausal. Family history of breast cancer in maternal aunt and breast cancer in daughter at age 44. Took estrogen for 6 years. Took progesterone for 6 years. Physical Findings: A clinical breast exam by your physician is recommended on an annual basis and results should be correlated with mammographic findings. MG 3D Screening Mammo W/Cad Bilateral CC and MLO view(s) were taken. Prior study comparison: May 12, 2020, right breast MG 3d work up w/cad RT. May 07, 2020, bilateral MG 3d screening mammo w/cad. Finding: There are typically benign vascular, linear calcifications in both breasts. There is no discrete abnormality. ASSESSMENT: Benign, BI-RAD 2 RECOMMENDATION: Routine screening mammogram of both breasts in 1 year.
== END | disposition home or self-care (01) ==
LOC: RADMAMWWP 09:01
PROVIDERS: ATTEND Obstetrics & Gynecology
DX: Z12.31 Encounter for screening mammogram for malignant neoplasm of breast (principal); Z80.3 Family history of malignant neoplasm of breast
CPT/HCPCS: 77063; 77067

== ENCOUNTER → 2022-06-09 | Outpatient (CLI) | payer MEDICARE, OTHER ==
--- NOTE | 2022-06-09 17:49 | BD ---
EXAMINATION TYPE: Axial Bone Density DATE OF EXAM: 06/09/2022 CLINICAL HISTORY: 76 years year old Female. ICD-10 CODE: M85.9 DISORDER OF BONE DENSITY Height: 61.5 Weight: 141 FRAX RISK QUESTIONS: Alcohol (3 or more units per day): NO Family History (Parent hip fracture): NO Glucocorticoids (More than 3mos): NO History of Fracture in Adulthood: NO Secondary Osteoporosis: 1. Type 1 Diabetes: NO 2. Hyperthyroidism: NO 3. Menopause before 45: NO 4. Malnutrition: NO 5. Chronic liver disease: NO Rheumatoid Arthritis: NO Current Tobacco Use: NO RISK FACTORS HISTORY OF: Hip Fracture (Right/Left): NO Spine Fracture: NO History of Wrist Fracture: NO Surgery to Spine/Hip(right/left)/Wrist (right/left): NO Family History of Osteoporosis: MOTHER, SISTERS X2, NIECES X2 Active: YES Diet low in dairy products/other sources of calcium: YES Postmenopausal woman: YES Take estrogen and/or progesterone medications: NO Lost more than 2 inches in height since high school: NO Frequent falls: NO Poor Health: NO Hyperparathyroidism: NO Adrenal Insufficiency: NO MEDICATIONS: Prednisone or other steroids: NO Thyroid Medications: SYNTHROID How Long: PAST 32 YEARS Osteoporosis Medications: NO Additional Medications: METFORMIN, SYNTHROID, ATORVASTATIN, BP MEDS, CLONAZEPAM, VIT D, CALCIUM, EXAM MEASUREMENTS: Bone mineral densitometry was performed using the [employer] System. Bone mineral density as measured about the Lumbar spine is: ----- L1-L4(G/cm2): 1.074 T Score Values are as follows: ----- L1: -1.2 ----- L2: -1.7 ----- L3: 0.3 ----- L4: -1.0 ----- L1-L4: -0.9 Bone mineral density has: INCREASED 6.0 % since study of: 10/14/2016 Bone mineral density about the R hip (g/cm2): 0.888 Bone mineral density about the L hip (g/cm2): 0.880 T Score values are as follows: -----R Neck: -1.1 -----L Neck: -1.1 -----R Total: -1.1 -----L Total: -0.7 Bone mineral density has: DECREASED 0.3 % since study of: 10/14/2016 FRAX%s: The graph provided illustrates a 11.7% chance for a major osteoporotic fx and a 2.3% chance f or the hips probability for fx in 10 years time. IMPRESSION: Osteopenia (T Score between -2.5 and -1). There is slightly increased risk of fracture and the patient may be considered for treatment. Re-Screen 2-5 years. NOTE: T-SCORE=SD OF THE YOUNG ADULT MEAN.
--- NOTE | 2022-06-10 19:48 | MM ---
Reason for Exam: Screening (asymptomatic). Last screening mammogram was performed 12 month(s) ago. Patient History: Menarche at age 9. First Full-Term at age 25. Left ovary removed at age 48. Right ovary removed at age 48. Hysterectomy at age 48. Postmenopausal. Estrogen for 6 years until age 55. Progesterone for 6 years until age 55. Maternal aunt had breast cancer. Niece had breast cancer at or over age 50. Daughter had breast cancer, age 44. Risk Values: Martha 5 year model risk: 3.7%. NCI Lifetime model risk: 6.6%. Prior Study Comparison: 05/07/2020 Bilateral Screening Mammogram, [facility]. 05/12/2020 Right Diagnostic Mammogram, [facility]. 06/03/2021 Bilateral Screening Mammogram, [facility]. Tissue Density: There are scattered fibroglandular densities. Findings: Analyzed By CAD. Central upper asymmetric density on the right remains unchanged. No significant change from prior. Overall Assessment: Benign, BI-RAD 2 Management: Screening Mammogram of both breasts in 1 year. 1. Patient should continue monthly self breast exams. 2. A clinical breast exam by your physician is recommended on an annual basis. 3. This exam should not preclude additional follow-up of suspicious palpable abnormalities. Electronically signed and approved by: Maria Luisa Gan M.D. Radiologist
== END | disposition home or self-care (01) ==
LOC: RADMAMWWP 07:13
PROVIDERS: ATTEND Family Medicine
DX: Z12.31 Encounter for screening mammogram for malignant neoplasm of breast (principal); M85.89 Other specified disorders of bone density and structure, multiple sites; Z78.0 Asymptomatic menopausal state; Z80.3 Family history of malignant neoplasm of breast
CPT/HCPCS: 77063; 77067; 77080

== ENCOUNTER → 2023-06-06 | Outpatient (CLI) | payer MEDICARE, OTHER ==
--- NOTE | 2023-06-06 14:10 | US ---
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 VESSELS IMAGED: Common Femoral Vein Deep Femoral Vein Greater Saphenous Vein * Femoral Vein Popliteal Vein Small Saphenous Vein * Proximal Calf Veins (* superficial vessels) Left Leg: Negative for DVT/ no abnormality visualized in area of pt's concern of left lower leg IMPRESSION: Grayscale, color doppler, spectral doppler imaging performed of the deep veins of the lo wer extremities. There is normal flow, compressibility, vascular waveforms.
== END | disposition home or self-care (01) ==
LOC: RADUSWWP 13:42
PROVIDERS: ATTEND Podiatrist Foot & Ankle Surgery
DX: I82.492 Acute embolism and thrombosis of other specified deep vein of left lower extremity (principal)

== ENCOUNTER → 2023-06-13 | Outpatient (CLI) | payer MEDICARE, OTHER ==
--- NOTE | 2023-06-15 09:26 | MM ---
Reason for Exam: Screening (asymptomatic). Last screening mammogram was performed 12 month(s) ago. Patient History: Menarche at age 9. First Full-Term at age 25. Left ovary removed at age 48. Right ovary removed at age 48. Hysterectomy at age 48. Postmenopausal. Patient has history of breast feeding. Estrogen for 6 years until age 55. Progesterone for 6 years until age 55. Maternal aunt had breast cancer. Niece had breast cancer at or over age 50. Daughter had breast cancer, age 44. Risk Values: Martha 5 year model risk: 3.6%. NCI Lifetime model risk: 6.0%. Prior Study Comparison: 05/12/2020 Right Diagnostic Mammogram, [facility]. 06/03/2021 Bilateral Screening Mammogram, [facility]. 06/09/2022 Bilateral MG 3D screening mammo w/cad, [facility]. Tissue Density: The breast tissue is heterogeneously dense. This may lower the sensitivity of mammography. Findings: Analyzed By CAD. There is no suspicious group of microcalcifications or new suspicious mass in either breast. Overall Assessment: Benign, BI-RAD 2 Management: Screening Mammogram of both breasts in 1 year. . Patient should continue monthly self-breast exams. A clinical breast exam by your physician is recommended on an annual basis. This exam should not preclude additional follow-up of suspicious palpable abnormalities. Note on Martha scores and lifetime risk: 1. A Martha score greater than 3% is considered moderate risk. If this is the case, consider specialist referral to assess eligibility for a risk reducing agent. 2. If overall lifetime risk for the development of breast cancer is 20% or higher, the patient may qualify for future screening with alternating mammogram and breast MRI. Electronically signed and approved by: Barron Ellis M.D. Radiologis
== END | disposition home or self-care (01) ==
LOC: RADMAMWWP 14:52
PROVIDERS: ATTEND Family Medicine
DX: Z12.31 Encounter for screening mammogram for malignant neoplasm of breast (principal); Z78.0 Asymptomatic menopausal state; Z80.3 Family history of malignant neoplasm of breast
CPT/HCPCS: 77063; 77067

== ENCOUNTER → 2024-06-14 | Outpatient (CLI) | payer MEDICARE, OTHER ==
--- NOTE | 2024-06-15 08:20 | MM ---
Reason for Exam: Screening (asymptomatic). Last screening mammogram was performed 12 month(s) ago. Patient History: Menarche at age 9. First Full-Term at age 25. Left ovary removed at age 48. Right ovary removed at age 48. Hysterectomy at age 48. Postmenopausal. Patient has history of breast feeding. Estrogen for 6 years until age 55. Progesterone for 6 years until age 55. Maternal aunt had breast cancer. Niece had breast cancer at or over age 50. Daughter had breast cancer, age 44. Risk Values: Martha 5 year model risk: 3.5%. NCI Lifetime model risk: 5.4%. Prior Study Comparison: 06/03/2021 Bilateral Screening Mammogram, [facility]. 06/09/2022 Bilateral MG 3D screening mammo w/cad, [facility]. 06/13/2023 Bilateral MG 3D screening mammo w/cad, [facility]. Tissue Density: There are scattered areas of fibroglandular density. Findings: Analyzed By CAD. Right breast: There is no suspicious group of microcalcifications or new suspicious mass. Left breast: There is no suspicious group of microcalcifications or new suspicious mass. Overall Assessment: Negative, BI-RAD 1 Management: Screening Mammogram of both breasts in [address] [facility] will attempt to contact patient to return for supplemental views and ultrasound if indicated. Patient should continue monthly self-breast exams. A clinical breast exam by your physician is recommended on an annual basis. This exam should not preclude additional follow-up of suspicious palpable abnormalities. Note on Martha scores and lifetime risk: 1. A Martha score greater than 3% is considered moderate risk. If this is the case, consider specialist referral to assess eligibility for a risk reducing agent. 2. If overall lifetime risk for the development of breast cancer is 20% or higher, the patient may qualify for future screening with alternating mammogram and breast MRI. [facility], , 06/15/2024 8:17 AM. Electronically signed and approved by: Dc Seugndo DO
--- NOTE | 2024-06-15 12:45 | BD ---
EXAMINATION TYPE: Axial Bone Density DATE OF EXAM: 06/14/2024 CLINICAL HISTORY: 78 years old Female. ICD-10 CODE: Z78.0 ASYMP TERRANCE STATE Height: 61.5 Weight: 149 FRAX RISK QUESTIONS: Secondary Osteoporosis: RISK FACTORS HISTORY OF: MEDICATIONS: Thyroid Medications: Which medication: Synthroid How Long: since 1988 EXAM MEASUREMENTS: Bone mineral densitometry was performed using the [employer] System. Bone mineral density as measured about the Lumbar spine is: ----- L1-L4(G/cm2): 1.220 T Score Values are as follows: ----- L1: -1.0 ----- L2: 0.4 ----- L3: 2.5 ----- L4: -0.7 ----- L1-L4: 0.3 Z Score Values are as follows: ----- L1: 0.8 ----- L2: 2.1 ----- L3: 4.3 ----- L4: 1.0 ----- L1-L4: 2.1 Bone mineral density has: Increased 13.6% since study of: 06-09-22 Bone mineral density about the R hip (g/cm2): 0.853 Bone mineral density about the L hip (g/cm2): 0.896 T Score values are as follows: -----R Neck: -1.0 -----L Neck: -1.2 -----R Total: -1.2 -----L Total: -0.9 Z Score values are as follows: -----R Neck: 1.1 -----L Neck: 0.9 -----R Total: 0.7 -----L Total: 1.1 Bone mineral density has: Decreased -1.8% since study of: 06-09-22 FRAX%s: The graph provided illustrates a 12.5% chance for a major osteoporotic fx and a 2.7% chance f or the hips probability for fx in 10 years time. IMPRESSION: Osteopenia (T Score between -2.5 and -1). There is slightly increased risk of fracture and the patient may be considered for treatment. Re-Screen 2-5 years. NOTE: T-SCORE=SD OF THE YOUNG ADULT MEAN. [facility], , 06/15/2024 12:43 PM
== END | disposition home or self-care (01) ==
LOC: RADMAMWWP 09:29
PROVIDERS: ATTEND Family Medicine
CPT/HCPCS: 77063; 77067; 77080